=== PATIENT | male | born 1985 | race Caucasian/White ===

== ENCOUNTER 2021-01-23 14:08 | Outpatient (RCR) | payer OTHER, SELFPAY | END 2021-03-18 23:59 | LOC: IMMUN 14:08 | PROVIDERS: Visit Provider Family Medicine | DX: Z23 Encounter for immunization (principal) | CPT/HCPCS: 0001A; 0002A; 91300 ==

== ENCOUNTER → 2022-06-09 | Outpatient (CLI) | payer OTHER, SELFPAY ==
--- NOTE | 2022-06-09 16:00 | MRI_ITS ---
STUDY: MRI TEMPOROMANDIBULAR JOINTS REASON FOR EXAM: Male, 36 years old. BILAT TMJ DISORDER TECHNIQUE: Standardized fat and water weighted pulse sequences were obtained in all 3 orthogonal planes. COMPARISON: None. FINDINGS: Left TMJ: In the closed-mouth position, the left mandibular condyle is normally positioned in the mandibular fossa. Normal left mandibular condyle. Normal meniscus. Normal relationship of the meniscus to the mandibular condyle. There is no demonstrated joint effusion. In the open mouth position, there is normal forward translation of the mandibular condyle which comes to rest under the articular eminence. The meniscus maintains its normal relationship with the mandibular condyle and articular eminence. Right TMJ: In the closed-mouth position, the right mandibular condyle is normally positioned in the mandibular fossa. Amanda right mandibular condyle. Normal meniscus. Normal relationship of the meniscus to the mandibular condyle. There is no demonstrated joint effusion. In the open mouth position, there is normal forward translation of the mandibular condyle which comes to rest under the articular eminence. The meniscus maintains its normal relationship with the mandibular condyle and articular eminence. MRI/TMJ/Bilat IMPRESSION: Normal bilateral temporomandibular joints. Electronically Signed: Kenyetta Edyd MD at 8:03 EDT ,
== END | disposition home or self-care (01) ==
PROVIDERS: Referring Provider Dentist Oral and Maxillofacial Surgery; Visit Provider Dentist Oral and Maxillofacial Surgery
DX: M26.603 Bilateral temporomandibular joint disorder, unspecified (principal)
CPT/HCPCS: 70336

== ENCOUNTER → 2023-08-30 | Outpatient (CLI) | payer OTHER, SELFPAY ==
[2023-08-30 10:34] LABS: Absolute Lymphocyte Count 2.95 X10^3/uL (0.83-4.51); Absolute Neutrophil Count 3.8 X10^3/uL (2.0-7.7); Basophil# 0.06 X10^3/uL; Basophil% 0.8 % (0-1); Eosinophil# 0.09 X10^3/uL; Eosinophils% 1.2 % (0-5); Hematocrit 46.8 % (40-54); Hemoglobin 15.2 g/dL (13.0-16.5); Lymphocyte # 2.95 X10^3/ul (0.83-4.51); Lymphocyte % 39.3 % (19-41); Mean Corp Hgb Conc 32.5 g/dL (32-36); Mean Corpuscular Hgb 27.9 pg (27.0-32.0); NRBC Flagged by Analyzer 0 % (0-5); Neutrophil # 3.75 X10^3/uL (2.7-7.7); Platelet Count 249 K/mm3 (150-450); RBC Distribution Width CV 13.2 % (11.6-14.6); RBC Distribution Width SD 40.9 fl (35.1-43.9); Red Blood Count 5.44 M/mm3 (4.6-6.2); White Blood Count 7.5 K/mm3 (4.4-11.0)
[2023-08-30 10:52] LABS: Vitamin B12 550 pg/mL (211-911); Vitamin D,25 Hydroxy 30.7 ng/mL
[2023-08-30 11:15] LABS: ALB/GLOB Ratio 1.1 RATIO (0.9-2.4); AST(SGOT) 24 U/L (15-37); Alanine Aminotransfer ALT/SGPT 41 U/L (16-61); Albumin, Serum 3.9 g/dL (3.2-5.0); Alkaline Phosphatase 105 U/L (45-117); Anion Gap 5 (5-15); BUN 17 mg/dL (7-18); BUN/Creat Ratio 14.3 RATIO (10-20); Calcium,Total 8.8 mg/dL (8.5-10.1); Chloride 106 mmol/L (98-107); Cholesterol 229 mg/dL (200); Creatinine, Serum 1.19 mg/dL (0.70-1.30); EST Glomerular Filtration Rate 74 mL/min (>60); Est Glom Filt Rate - Afr Amer 89 mL/min (>60); Ferritin 292 ng/mL (26-388); Globulin 3.5 g/dL (2.2-4.2); Glucose 100 mg/dL (74-106); High Density Lipoprotein 39 mg/dL; Magnesium 2.4 mg/dL (1.6-2.6); Protein, Total 7.4 g/dL (6.4-8.2); Sodium Level 139 mmol/L (136-145); Thyroid Stim Hormone (TSH) 2.29 uIU/mL (0.358-3.74); Triglycerides 221 mg/dL; Very Low Density Lipoprotein 44 mg/dL (5-40)
== END | disposition home or self-care (01) ==
LOC: MFPLAB 08:17
PROVIDERS: PCP Family Medicine; Visit Provider Family Medicine
DX: R53.83 Other fatigue (principal)
CPT/HCPCS: 36415; 80053; 80061; 82306; 82607; 82728; 83036; 83735; 84443; 85025

== ENCOUNTER → 2025-07-06 | Outpatient (CLI) | payer OTHER, SELFPAY ==
--- OUTSIDE RECORDS SUMMARY | 2025-07-06 12:07 | XMS RPT_ITS | CCD ---
Author Organization [facility] Inform ion Partnership [facility] Care Team Providers Care Residential Subcontractor Name Role Phone Unavailable Primary Care Provider Chani Madrid Attending Unavailable Chani Willis Primary Care Unavailable Unavailable Primary Care Provider Margi Ruth MD Primary Care Provider MARGI BAE Primary Care Unavailable ROMAN HAGEN Referring Unavailable MARGI BAE Primary Care Unavailable ROMAN HAGEN Attending Unavailable GERALD JULES Referring Unavailable Medications Current Medications Medication Drug Class(es) Dates Sig (Normalized) Sig (Original) acetaminophen 325 mg / oxyCODONE hydrochloride 5 mg oral tablet (2 sources) Opioid Agonist Start: 7 take 1 tablet by mouth every six hours as needed Oxycodone-Acetaminoph en Active 1 TABLET PO EVERY 6 HOURS NEEDED January 05, 2017 11:00pm 24 hr amphetamine aspartate 7.5 mg / amphetamine sulfate 7.5 mg / dextroamphetamine saccharate 7.5 mg / dextroamphetamine sulfate 7.5 mg extended release oral capsule (2 sources) Central Nervous System Stimulant Start: 5 amphetamine-dextroamp hetamine XR (ADDERALL XR) 30 mg capsule 03/20/2025 Active AUVELITY 45-105 mg tablet (2 sources) Start: 5 AUVELITY 45-105 mg tablet 05/19/2025 Active methylPREDNISolone 4 mg oral tablet (2 sources) Corticosteroid Start: 2 take 1 tablet by mouth once Methylprednisolone (Medrol (Aashish)) 4 mg tablets,dose pack Active 0 PO per package directions May 17, 2022 11:00pm PO PER PKG DIR traZODone hydrochloride 100 mg oral tablet (2 sources) Serotonin Reuptake Inhibitor Start: traZODone (DESYREL) 100 mg tablet 05/19/2025 Active Problems Active Problems Problem Classification Problem Date Documented Da te Episodic/Chronic Malaise and fatigue (1 source) Other fatigue; Translations: [Other fatigue] Onset: 09-16-2023 Episodic Other connective tissue disease (1 source) Tendonitis of right wrist; Translations: [Other enthesopathies, not elsewhere classified] 05-24-2025 Episodic Other connective tissue disease (1 source) Other enthesopathies, not elsewhere classified; Translations: [Tendonitis of wrist, right] Onset: 05-24-2025 Episodic Other non-traumatic joint disorders (4 sources) Pain of right wrist; Translations: [Pain in right wrist] 05-24-2025 Episodic Other non-traumatic joint disorders (1 source) Pain in right wrist; Translations: [Wrist pain, right] Onset: 05-24-2025 Episodic Unclassified (1 source) Sexually Transmitted Infections Onset: 09-15-2024 Past or Other Problems Problem Classification Problem Date Documented Da te Episodic/Chronic Immunizations and screening for infectious disease (4 sources) Patient encounter status; Translations: [Encounter for screening for COVID-19] Onset: 09-15-2024 07-22-2021 Episodic Other connective tissue disease (3 sources) Increased muscle tone; Translations: [Other specified disorders of muscle] Onset: 05-23-2021 Resolved: 07-11-2021 07-11-2021 Episodic Other male genital disorders (4 sources) Pain of left testicle; Translations: [Left testicular pain] Onset: 05-23-2021 05-23-2021 Episodic Results Test Name Value Interpretation Reference Range Facil marlene Bullard 05-24-2025 CNOV Office Visit ([facility]) ---- TONIA WOODRUFF ([id number]) 1985 M Date Time Provider Department 05/24/25 4:00 PM ROMAN HAGEN During your visit today, we recorded the following information about you: Temperature Pulse Respiration Blood pressure 99.1 degrees 90/minute 18/minute 130/86 Weight 106.8 kg Roman Hagen MD 05/24/2025 5:13 PM Signed [facility] Subjective Tonia Woodruff is a 39 year old male. Patient presents with: Wrist Pain: R wrist pain x6 weeks, denies injury, overuse while gardening Right wrist pain: Duration: Started 6 weeks ago after a long weekend of yard work. No specific injury. Location: Dorsal right wrist Character: sharp and throbbing. Swelling, pain, and pain with movement have improved somewhat since they started. Radiation: Shoots up the arm with certain activity. Aggravating: Tender to touch a lump on the back of the hand, very painful trying to lift, hurts to grasp and shake hands Relieving: Pain relievers: Advil Associated: Initial wrist swelling has decrease, painful range of motion has improved (still hurts to flex and extend), palpable lump on the back of the hand at the wrist Pertinent negatives: Denies numbness Review of Systems Objective BP 130/86 Pulse 90 Temp 37.3 ?C (99.1 ?F) Resp 18 Wt 106.8 kg (235 lb 7.2 oz) SpO2 98% BMI 33.78 kg/m? Physical Exam Constitutional: General: He is not in acute distress. Musculoskeletal: Right wrist: Bony tenderness (Tender at the insertion of the extensor carpi radialis tendons. Other hand and wrist bones are nontender to palpation.) present. No swelling, deformity or snuff box tenderness. Decreased range of motion (Discomfort with near full flexion and extension. No pain with radial or ulnar deviation or supination/pronatio n. Pain with grasping.). Normal pulse. Hands: Neurological: Mental Status: He is alert. {ASSESSMENT/PLAN: 1. Wrist pain, right - ICD9: 719.43, ICD10: M25.531 (primary diagnosis) 2. Tendonitis of wrist, right - ICD9: 727.05, ICD10: M77.8 - XR WRIST GENERAL 3V PA/LAT/OBL RIGHT - negative/normal Treat extensor carpi radialis insertion tendinitis with rest, ice, and anti-inflammatory/a nalgesic. He will continue Advil. Fitted with cock up splint from vendor stock. Follow-up with orthopedics if not improving. Roman Hagen MD Differential Diagnoses - Tendinitis is more likely for the following reason(s): suggested by HANDP - Fracture is less likely for the following reason(s): no evidence on imaging Additional Tests or Interventions The following medication(s) were considered but not ordered: Discussed continuing NSAID versus oral steroid Procedures Allergies As of Date: 05/24/2025 (No Known Allergies) Date Reviewed: 05/24/2025 Reviewed by: Sole Zee MA - Fully Assessed Reason for Visit: Wrist Pain [1580] Cmt: R wrist pain x6 weeks, denies injury, overuse while gardening Primary Visit Diagnosis:Wrist pain, right [M25.531] Other Visit Diagnosis:Tendoniti s of wrist, right [M77.8] Order(s):XR WRIST GENERAL 3V PA/LAT/OBL RIGHT [[id number]] Order #: [id number] FUTURE Prescriptions as of 05/24/2025 - amphetamine-dextroa mphetamine XR (ADDERALL XR) 30 mg capsule - AUVELITY 45-105 mg tablet - traZODone (DESYREL) 100 mg tablet Problem List As Of Date 05/24/2025 Noted Resolved Pain in left testicle [N50.812] 05/23/2021 Muscle tightness [M62.89] 05/23/2021 07/11/2021 Level of Service: OFFICE/OUTPATIENT ESTABLISHED [facility] 30 MIN [14901] Encounter Status:Closed by ROMAN HAGEN on 05/24/25 [facility] XR WRIST 3V PA/LAT/OBL RTon 05-24-2025 XR WRIST 3V PA/LAT/OBL RT * * *Final Report* * * DATE OF EXAM: May 24 2025 4:17PM WOX 5271 - XR WRIST 3V PA/LAT/OBL RT / PROCEDURE REASON: Wrist pain, right * * * * Physician Interpretation * * * * EXAM TITLE: XR WRIST 3V PA/LAT/OBL RT EXAM DATE/TIME: 05/24/2025 4:17 PM COMPARISON: None. CLINICAL INDICATION/HISTORY: Wrist pain. TECHNIQUE: PA, lateral and oblique views of right wrist are presented. FINDINGS: No fractures or subluxations are noted. No bony erosions are seen. The joint spaces are well preserved. The mineralization of the bones is normal. There is no significant soft tissue swelling. IMPRESSION: Unremarkable right wrist x-ray. Vineyard Tender: [employer]OC[employer] Transcribe Date/Time: May 24 2025 4:16P Dictated by : SUSAN JOY MD This examination was interpreted and the report reviewed and electronically signed by: SUSAN JOY MD on May 24 2025 4:17PM EST [id number] Normal [facility] XR Wrist - right PA and Late ral and Obliqueon 05-24-2025 Radiology Study observation (narrative) Dahlia Morgan IMPRESSION: Unremarkable right wrist x-ray. Vineyard Tender: [facility] Transcribe Date/Time: May 24 2025 4:16P Dictated by : SUSAN JOY MD This examination was interpreted and the report reviewed and electronically signed by: SUSAN JOY MD on May 24 2025 4:17PM EST DIVISION OF RADIOLOGY * * *Final Report* * * DATE OF EXAM: May 24 2025 4:17PM WOX 5271 - XR WRIST 3V PA/LAT/OBL RT / PROCEDURE REASON: Wrist pain, right * * * * Physician Interpretation * * * * EXAM TITLE: XR WRIST 3V PA/LAT/OBL RT EXAM DATE/TIME: 05/24/2025 4:17 PM COMPARISON: None. CLINICAL INDICATION/HISTORY: Wrist pain. TECHNIQUE: PA, lateral and oblique views of right wrist are presented. FINDINGS: No fractures or subluxations are noted. No bony erosions are seen. The joint spaces are well preserved. The mineralization of the bones is normal. There is no significant soft tissue swelling. DIVISION OF RADIOLOGY Provider, [facility] [place] - 05/24/2025 * * *Final Report* * * DATE OF EXAM: May 24 2025 4:17PM WOX 5271 - XR WRIST 3V PA/LAT/OBL RT / PROCEDURE REASON: Wrist pain, right * * * * Physician Interpretation * * * * EXAM TITLE: XR WRIST 3V PA/LAT/OBL RT EXAM DATE/TIME: 05/24/2025 4:17 PM COMPARISON: None. CLINICAL INDICATION/HISTORY: Wrist pain. TECHNIQUE: PA, lateral and oblique views of right wrist are presented. FINDINGS: No fractures or subluxations are noted. No bony erosions are seen. The joint spaces are well preserved. The mineralization of the bones is normal. There is no significant soft tissue swelling. IMPRESSION IMPRESSION: Unremarkable right wrist x-ray. Vineyard Tender: [facility] Transcribe Date/Time: May 24 2025 4:16P Dictated by : SUSAN JOY MD This examination was interpreted and the report reviewed and electronically signed by: SUSAN JOY MD on May 24 2025 4:17PM EST [facility] XR Wrist - right PA and Late ral and ObliqueOrdered By: Ccf Provider on 05-24-2025 [facility] C. trachomatis+N. gonorrhoea e DNA DEXTER+probe Ql (Unsp spec)on 09-15-2024 C. trachomatis rRNA DEXTER+probe Ql (Unsp spec) Not detected Normal Not detected [facility] Comment on above: Order Comment: Speci men Type: URINE SPECIMEN Ordering Facility: [facility] Address: [address] [place] [address] Performed By: #### 3 6902-5 #### [facility] CLIA [id number] [address] [place] [address] [place] N. gonorrhoeae rRNA DEXTER+probe Ql (Unsp spec) Not detected Normal Not detected [facility] Comment on above: Order Comment: Speci men Type: URINE SPECIMEN Ordering Facility: [facility] Address: [address] [place] [address] Performed By: #### 3 6902-5 #### [facility] CLIA [id number] [address] [place] [address] [place] CNOVon 09-15-2024 CNOV Office Visit ([facility]) ---- TONIA WOODRUFF ([id number]) 1985 M Date Time Provider Department 09/15/24 3:00 PM GERALD JULES [facility] During your visit today, we recorded the following information about you: Temperature Pulse Respiration Blood pressure 99.2 degrees 86/minute 18/minute 142/84 Weight 108 kg Gerald Jules APRN.CNP 09/15/2024 3:14 PM Signed This note was created using [employer]. Subjective Tonia Woodruff is a 38 year old male. HPI Patient is concerned for possible STD exposure and presents requesting testing. Patient otherwise denies any nausea vomiting fever, lesions, penile drainage, or abdominal pain. Review of Systems As noted above Objective BP 142/84 Pulse 86 Temp 37.3 ?C (99.2 ?F) Resp 18 Wt 108 kg (238 lb 1.6 oz) SpO2 95% BMI 34.16 kg/m? Physical Exam Vitals and nursing note reviewed. Constitutional: General: He is not in acute distress. Appearance: Normal appearance. He is not ill-appearing. HENT: Head: Normocephalic. Pulmonary: Effort: Pulmonary effort is normal. Musculoskeletal: General: Normal range of motion. Cervical back: Normal range of motion. Skin: General: Skin is warm and dry. Neurological: General: No focal deficit present. Mental Status: He is alert. Psychiatric: Mood and Affect: Mood normal. Behavior: Behavior normal. Assessment and Plan ASSESSMENT/PLAN: 1. STD exposure - ICD9: V01.6, ICD10: Z20.2 Testing done as noted below. Patient will be notified of results. - SYPHILIS TREPONEMAL W/REFLEX - HIV 1/2 COMBO WITH REFLEX TO DIFFERENTIATION - HEPATITIS C ANTIBODY IA WITH CONFIRMATION - HEPATITIS B SURFACE ANTIGEN - GONORRHEA/CHLAMYDIA NAAT - HERPES SIMPLEX TYPE 1 AND 2 IG Gerald Jules APRN.CNP Allergies As of Date: 09/15/2024 (No Known Allergies) Date Reviewed: 09/15/2024 Reviewed by: Sole Zee MA - Fully Assessed Reason for Visit: Herpes [934] Cmt: Requesting bloodwork, denies symptoms or active infection Primary Visit Diagnosis:STD exposure [Z20.2] Order(s):SYPHILIS TREPONEMAL W/REFLEX [SQSYPHTX] Order #: [id number] FUTURE HIV 1/2 COMBO WITH REFLEX TO DIFFERENTIATION [SQHIV12] Order #: [id number] FUTURE HEPATITIS C ANTIBODY IA WITH CONFIRMATION [EFVOEX8X] Order #: [id number] FUTURE HEPATITIS B SURFACE ANTIGEN [SQHBSAG] Order #: [id number] FUTURE GONORRHEA/CHLAMYDIA NAAT [SQGCCT] Order #: [id number] FUTURE HERPES SIMPLEX TYPE 1 AND 2 IG [XCTQBN56] Order #: [id number] FUTURE GONORRHEA/CHLAMYDIA NAAT [SQGCCT] Order #: [id number]. #:[id number] Problem List As Of Date 09/15/2024 Noted Resolved Pain in left testicle [N50.812] 05/23/2021 Muscle tightness [M62.89] 05/23/2021 07/11/2021 Encounter Status:Closed by GERALD JULES on 09/15/24 Normal [facility] HBV surface Ag Ser Qlon HBV surface Ag Ql (S) Negative Normal Negative [facility] Comment on above: Order Comment: Speci men Type: BLOOD SPECIMEN Ordering Facility: [facility] Address: [address] [place] [address] Performed By: #### 3 1201-7, 32139-6, 5195-3 #### [facility] CLIA [id number] [address] [place] [address] [place] HCV Ab Ser Qlon 09-15-2024 HCV Ab Ql (S) Negative Normal Negative [facility] Comment on above: Order Comment: Speci men Type: BLOOD SPECIMEN Ordering Facility: [facility] Address: [address] [place] [address] Result Comment: The result suggests no evidence of active infection with Hepatitis C virus. Should recent infection be suspected, repeat testing may be considered 4-6 weeks after this draw. Performed By: #### 1 6128-1 #### [facility] CLIA [id number] [address] [place] [address] OF [place] HERPES SIMPLEX TYPE 1 AND 2 IGon 09-15-2024 HSV IGG 1 QUALITATIVE Negative Normal Negative [facility] Comment on above: Order Comment: Speci men Type: BLOOD SPECIMEN Ordering Facility: [facility] Address: [address] [place] [address] Result Comment: No e vidence of past history of HSV-1 infection. Negative result cannot exclude HSV-1 infection if the specimen collected 3-4 weeks after a primary episode of HSV-1 infection. Early institution of antiviral agents may delay or abrogate specific humoral response. Performed By: #### H SVG12 #### [facility] CLIA [id number] [address] [place] [address] [place] HSV IGG 2 QUALITATIVE Negative Normal Negative [facility] Comment on above: Order Comment: Speci men Type: BLOOD SPECIMEN Ordering Facility: [facility] Address: [address] [place] [address] Result Comment: No e vidence of past history of HSV-2 infection. Negative result cannot exclude HSV-2 infection if the specimen collected 4-6 weeks after a primary episode of HSV-2 infection. Early institution of antiviral agents may delay or abrogate specific humoral response. Performed By: #### H SVG12 #### [facility] CLIA [id number] [address] [place] [address] [place] HIV 1+2 Ab IA Qlon HIV 1 and 2 Ab IA.rapid Nom (S/P/Bld) Normal [facility] Comment on above: Order Comment: Speci men Type: BLOOD SPECIMEN Ordering Facility: [facility] Address: [address] [place] [address] Result Comment: Test not indicated. Performed By: #### 3 1201-7, 94237-3, 5195-3 #### [facility] CLIA [id number] [address] [place] [address] [place] HIV 1+2 Ab+HIV1 p24 Ag IA Ql Non-Reactive Normal Nonreactive [facility] Comment on above: Order Comment: Speci men Type: BLOOD SPECIMEN Ordering Facility: [facility] Address: [address] [place] [address] Performed By: #### 3 1201-7, 67171-7, 5195-3 #### [facility] CLIA [id number] [address] [place] [address] [place] HIV immunoassay testing algorithm interpretation (S/P/Bld) [Interp] Normal [facility] Comment on above: Order Comment: Speci men Type: BLOOD SPECIMEN Ordering Facility: [facility] Address: [address] [place] [address] Result Comment: No e vidence of HIV-1 or HIV-2 infection. Should recent infection be suspected, repeat testing may be considered 2-3 weeks after this draw. [place] Rev. Code 3701.243(E): This information has been disclosed to you from confidential records protected from disclosure by state law. ???You shall make no further disclosure of this information without the specific, written, and informed release of the individual to whom it pertains or as otherwise permitted by state law. A general authorization for the release of medical or other information is not sufficient for the purpose of the release of HIV test results or diagnoses. Performed By: #### 3 1201-7, 75140-2, 5195-3 #### [facility] CLIA [id number] [address] [place] [address] [place] Reagin and Treponema pallidu m IgG and IgM [Interp]on 09-15-2024 T. pallidum IgG+IgM IA Ql (S) Non-Reactive Normal Nonreactive [facility] Comment on above: Order Comment: Speci men Type: BLOOD SPECIMEN Ordering Facility: [facility] Address: [address] [place] [address] Performed By: #### 3 1201-7, 64697-2, 5195-3 #### [facility] CLIA [id number] [address] [place] [address] [place] Reagin+T pallidum IgG+IgM Se rPl-Impon 09-15-2024 Reagin and Treponema pallidum IgG and IgM [Interp] Cannot exclude recent Treponemal infection if specimen collected within 7-10 days after appearance of suspect lesions or 2-3 weeks after an exposure. Clinical correlation is required. Normal [facility] Comment on above: Order Comment: Speci men Type: BLOOD SPECIMEN Ordering Facility: [facility] Address: [address] [place] [address] Performed By: #### 3 1201-7, 40197-2, 5195-3 #### [facility] CLIA [id number] [address] [place] [address] [place] [address] [place] Absolute lymphocyte countOrd ered By: Chani Willis on 08-30-2023 Lymphocytes Auto (Unsp spec) [#/Vol] 2.95 10*3/uL 0.83-4.51 [facility] Basophil percentageOrdered B y: Chani Willis on 08-30-2023 Basophils/100 WBC (Bld) 0.8 % 0-1 [facility] Bilirubin [Mass/Vol] 0.50 mg/dL 0.20-1.00 [facility] Comment on above: For patients on eltr ombopag therapy, use of Dimension [place] TBIL is not recommended. Chloride [Moles/Vol] 106 mmol/L 98-107 [facility] Cholesterol [Mass/Vol] 229 mg/dL <[address] [facility] Comment on above: <200 mg/dL Desirable 200-240 mg/dL Borderline >240 mg/dL High Risk Eosinophils/100 WBC (Bld) 1.2 % 0-5 [facility] Glucose [Mass/Vol] 100 mg/dL 74-106 [facility] Comment on above: Fasting Glucose resu lt from 100 to 125 mg/dL suggests IMPAIRED HOMEOSTASIS per A.D.A. criteria. Neutrophils (Bld) [#/Vol] 3.8 10*3/uL 2.0-7.7 [facility] Neutrophils/100 WBC (Bld) 50.0 % 47-70 [facility] Potassium [Moles/Vol] 4.0 mmol/L 3.5-5.1 [facility] Protein [Mass/Vol] 7.4 g/dL 6.4-8.2 [facility] Sodium [Moles/Vol] 139 mmol/L 136-145 [facility] Triglyceride [Mass/Vol] 221 mg/dL <199 [facility] Comment on above: The drugs N-Acetylcy steine and Metamizole may falsely depress this assay.Serum Triglycerides Reference Interval Normal <150 mg/dL Borderline high 150 - 199 mg/dL High 200 - 499 mg/dL Very High > or = 500 mg/dL WBC (Bld) [#/Vol] 7.5 10*3/uL 4.4-11.0 [facility] Blood erythrocytes count (nu mber/volume)Ordered By: Chani Willis on 08-30-2023 RBC (Bld) [#/Vol] 5.44 10*6/uL 4.6-6.2 [facility] Blood hemoglobin measurement (mass/volume)Ordered By: Chani Willis on 08-30-2023 Hemoglobin (Bld) [Mass/Vol] 15.2 g/dL 13.0-16.5 [facility] Blood lymphocytes/100 leukoc ytesOrdered By: Chani Willis on 08-30-2023 Lymphocytes/100 WBC (Bld) 39.3 % 19-41 [facility] Blood monocytes/100 leukocyt esOrdered By: Chani Willis on 08-30-2023 Monocytes/100 WBC (Bld) 8.0 % 0-10 [facility] Blood platelet mean volumeOr dered By: Chani Willis on 08-30-2023 Platelet mean volume (Bld) [Entitic vol] 11.0 fL 6.2-12.0 [facility] CBC W/Diff, Automatedon 08-12 Absolute Lymph 2.95 X10 3/uL Normal 0.83-4.51 [facility] Comment on above: Order Comment: Order Date: 08/25/23 Order Info: 0184-1 - CBCD Performed By: #### L 501.9520, L503.0105, L501.5200, L500.4050, L501.9985, L500.4100, L506.1000, L100.0100, L503.6550 #### [facility] [address] [place], [address] Absolute Neut 3.8 X10 3/uL Normal 2.0-7.7 [facility] Comment on above: Order Comment: Order Date: 08/25/23 Order Info: 0184-1 - CBCD Performed By: #### L 501.9520, L503.0105, L501.5200, L500.4050, L501.9985, L500.4100, L506.1000, L100.0100, L503.6550 #### [facility] [address] [place], [address] Basophils/100 WBC (Bld) 0.8 % Normal 0-1 [facility] Comment on above: Order Comment: Order Date: 08/25/23 Order Info: 0184-1 - CBCD Performed By: #### L 501.9520, L503.0105, L501.5200, L500.4050, L501.9985, L500.4100, L506.1000, L100.0100, L503.6550 #### [facility] [address] [place], [address] Eosinophils/100 WBC (Bld) 1.2 % Normal 0-5 [facility] Comment on above: Order Comment: Order Date: 08/25/23 Order Info: 0184-1 - CBCD Performed By: #### L 501.9520, L503.0105, L501.5200, L500.4050, L501.9985, L500.4100, L506.1000, L100.0100, L503.6550 #### [facility] [address] [place], [address] Erythrocyte distribution width (RBC) [Ratio] 13.2 % Normal 11.6-14.6 [facility] Comment on above: Order Comment: Order Date: 08/25/23 Order Info: 0184-1 - CBCD Performed By: #### L 501.9520, L503.0105, L501.5200, L500.4050, L501.9985, L500.4100, L506.1000, L100.0100, L503.6550 #### [facility] [address] [facility] [place], [address] Hematocrit (Bld) [Volume fraction] 46.8 % Normal 40-54 [facility] Comment on above: Order Comment: Order Date: 08/25/23 Order Info: 0184-1 - CBCD Performed By: #### L 501.9520, L503.0105, L501.5200, L500.4050, L501.9985, L500.4100, L506.1000, L100.0100, L503.6550 #### [facility] [address] [facility] [place], [address] Hemoglobin (Bld) [Mass/Vol] 15.2 g/dL Normal 13.0-16.5 [facility] Comment on above: Order Comment: Order Date: 08/25/23 Order Info: 0184-1 - CBCD Performed By: #### L [id number], L503.0105, L501.5200, L500.4050, L501.9985, L500.4100, L506.1000, L100.0100, L503.6550 #### [facility] [address] [place], [address] IG% 0.700 Normal 0.0-0.9 [facility] Comment on above: Order Comment: Order Date: 08/25/23 Order Info: 0184-1 - CBCD Result Comment: IG% - Immature Granulocytes (promyelocytes, myelocytes and metamyelocytes) > 1% indicates that a LEFT SHIFT is Present. Performed By: #### L 501.9520, L503.0105, L501.5200, L500.4050, L501.9985, L500.4100, L506.1000, L100.0100, L503.6550 #### [facility] [address] [place], [address] Lymphocytes/100 WBC (Bld) 39.3 % Normal 19-41 [facility] Comment on above: Order Comment: Order Date: 08/25/23 Order Info: 0184-1 - CBCD Performed By: #### L 501.9520, L503.0105, L501.5200, L500.4050, L501.9985, L500.4100, L506.1000, L100.0100, L503.6550 #### [facility] [address] [place], [address] MCH (RBC) [Entitic mass] 27.9 pg Normal 27.0-32.0 [facility] Comment on above: Order Comment: Order Date: 08/25/23 Order Info: 0184- - CBCD Performed By: #### L 501.9520, L503.0105, L501.5200, L500.4050, L501.9985, L500.4100, L506.1000, L100.0100, L503.6550 #### [facility] [address] [place], [address] MCHC (RBC) [Mass/Vol] 32.5 g/dL Normal 32-36 [facility] Comment on above: Order Comment: Order Date: 08/25/23 Order Info: 0184- - CBCD Performed By: #### L 501.9520, L503.0105, L501.5200, L500.4050, L501.9985, L500.4100, L506.1000, L100.0100, L503.6550 #### [facility] [address] [place], [address] MCV (RBC) [Entitic vol] 86.0 fL Normal 80-94 [facility] Comment on above: Order Comment: Order Date: 08/25/23 Order Info: 0184- - CBCD Performed By: #### L 501.9520, L503.0105, L501.5200, L500.4050, L501.9985, L500.4100, L506.1000, L100.0100, L503.6550 #### [facility] [address] [place], [address] Monocytes/100 WBC (Bld) 8.0 % Normal 0-10 [facility] Comment on above: Order Comment: Order Date: 08/25/23 Order Info: 0184-1 - CBCD Performed By: #### L 501.9520, L503.0105, L501.5200, L500.4050, L501.9985, L500.4100, L506.1000, L100.0100, L503.6550 #### [facility] [address] [place], [address] Neutrophils/100 WBC (Bld) 50.0 % Normal 47-70 [facility] Comment on above: Order Comment: Order Date: 08/25/23 Order Info: 0184-1 - CBCD Performed By: #### L 501.9520, L503.0105, L501.5200, L500.4050, L501.9985, L500.4100, L506.1000, L100.0100, L503.6550 #### [facility] [address] [place], [address] Nucleated RBC (Bld) [#/Vol] 0 10*3/uL Normal 0-5 [facility] Comment on above: Order Comment: Order Date: 08/25/23 Order Info: 0184-1 - CBCD Performed By: #### L 501.9520, L503.0105, L501.5200, L500.4050, L501.9985, L500.4100, L506.1000, L100.0100, L503.6550 #### [facility] [address] [place], [address] Platelet mean volume (Bld) [Entitic vol] 11.0 fL Normal 6.2-12.0 [facility] Comment on above: Order Comment: Order Date: 08/25/23 Order Info: 0184-1 - CBCD Performed By: #### L 501.9520, L503.0105, L501.5200, L500.4050, L501.9985, L500.4100, L506.1000, L100.0100, L503.6550 #### [facility] [address] [place], [address] Platelets (Bld) [#/Vol] 249 10*3/uL Normal 150-450 [facility] Comment on above: Order Comment: Order Date: 08/25/23 Order Info: 0184-1 - CBCD Performed By: #### L 501.9520, L503.0105, L501.5200, L500.4050, L501.9985, L500.4100, L506.1000, L100.0100, L503.6550 #### [facility] [address] [place], [address] RBC (Bld) [#/Vol] 5.44 10*6/uL Normal 4.6-6.2 [facility] Comment on above: Order Comment: Order Date: 08/25/23 Order Info: 0184-1 - CBCD Performed By: #### L 501.9520, L503.0105, L501.5200, L500.4050, L501.9985, L500.4100, L506.1000, L100.0100, L503.6550 #### [facility] [address] [place], [address] RDW SD 40.9 fl Normal 35.1-43.9 [facility] Comment on above: Order Comment: Order Date: 08/25/23 Order Info: 0184-1 - CBCD Performed By: #### L 501.9520, L503.0105, L501.5200, L500.4050, L501.9985, L500.4100, L506.1000, L100.0100, L503.6550 #### [facility] [address] [place], [place], [id number] WBC (Bld) [#/Vol] 7.5 10*3/uL Normal 4.4-11.0 [facility] Comment on above: Order Comment: Order Date: 08/25/23 Order Info: 0184-1 - CBCD Performed By: #### L 501.9520, L503.0105, L501.5200, L500.4050, L501.9985, L500.4100, L506.1000, L100.0100, L503.6550 #### [facility] [address] [place], [place], [id number] Comprehensive Metabolic Prof ilon 08-30-2023 Albumin [Mass/Vol] 3.9 g/dL Normal 3.2-5.0 [facility] Comment on above: Order Comment: Order Date: 08/25/23 Order Info: 0786-1 - CMP Order Info: [id number] - LIPID Order Info: [id number] - MG Order Info: 3015-3 - TSH Order Info: 4 - IDA Performed By: #### L 501.9520, L503.0105, L501.5200, L500.4050, L501.9985, L500.4100, L506.1000, L100.0100, L503.6550 #### [facility] [address] [place], [place], [phone] Albumin/Globulin [Mass ratio] 1.1 {ratio} Normal 0.9-2.4 [facility] Comment on above: Order Comment: Order Date: 08/25/23 Order Info: 0786-1 - CMP Order Info: [id number] - LIPID Order Info: [id number] - MG Order Info: 3016-3 - TSH Order Info: 2276-4 - IDA Performed By: #### L 501.9520, L503.0105, L501.5200, L500.4050, L501.9985, L500.4100, L506.1000, L100.0100, L503.6550 #### [facility] [address] [place], [address] ALK P 105 U/L Normal 45-117 [facility] Comment on above: Order Comment: Order Date: 08/25/23 Order Info: 86-1 - CMP Order Info: [id number] - LIPID Order Info: [id number] - MG Order Info: 3 - TSH Order Info: 2275-4 - IDA Performed By: #### L 501.9520, L503.0105, L501.5200, L500.4050, L501.9985, L500.4100, L506.1000, L100.0100, L503.6550 #### [facility] [address] [place], [place], [phone] [Catalytic activity/Vol] 41 U/L Normal 16-61 [facility] Comment on above: Order Comment: Order Date: 08/25/23 Order Info: 785-1 - CMP Order Info: [id number] - LIPID Order Info: [id number] - MG Order Info: 3 - TSH Order Info: 2275-4 - IDA Performed By: #### L 501.9520, L503.0105, L501.5200, L500.4050, L501.9985, L500.4100, L506.1000, L100.0100, L503.6550 #### [facility] [address] [place], [place], [address] [phone]) AST [Catalytic activity/Vol] 24 U/L Normal 15-37 [facility] Comment on above: Order Comment: Order Date: 08/25/23 Order Info: 86-1 - CMP Order Info: [id number] - LIPID Order Info: [id number] - MG Order Info: 3015-3 - TSH Order Info: 2275-4 - IDA Performed By: #### L 501.9520, L503.0105, L501.5200, L500.4050, L501.9985, L500.4100, L506.1000, L100.0100, L503.6550 #### [facility] [address] [place], [place], [phone] (764) Bilirubin [Mass/Vol] 0.50 mg/dL Normal 0.20-1.00 [facility] Comment on above: Order Comment: Order Date: 08/25/23 Order Info: 86-1 - CMP Order Info: [id number] - LIPID Order Info: [id number] - MG Order Info: 3 - TSH Order Info: 4 - IDA Result Comment: For patients on eltrombopag therapy, use of Dimension [place] TBIL is not recommended. Performed By: #### L 501.9520, L503.0105, L501.5200, L500.4050, L501.9985, L500.4100, L506.1000, L100.0100, L503.6550 #### [facility] [address] [place], [place], [phone] (054) BUN/CRE 14.3 RATIO Normal 10-20 [facility] Comment on above: Order Comment: Order Date: 08/25/23 Order Info: 785- - CMP Order Info: [id number] - LIPID Order Info: [id number] - MG Order Info: 3 - TSH Order Info: 4 - IDA Performed By: #### L 501.9520, L503.0105, L501.5200, L500.4050, L501.9985, L500.4100, L506.1000, L100.0100, L503.6550 #### [facility] [address] [place], [address] ([phone]) CA,Total 8.8 mg/dL Normal 8.5-10.1 [facility] Comment on above: Order Comment: Order Date: 08/25/23 Order Info: 785-1 - CMP Order Info: [id number] - LIPID Order Info: [id number] - MG Order Info: 3013 - TSH Order Info: 2276-4 - IDA Performed By: #### L 501.9520, L503.0105, L501.5200, L500.4050, L501.9985, L500.4100, L506.1000, L100.0100, L503.6550 #### [facility] [address] [place], [address] Chloride [Moles/Vol] 106 mmol/L Normal 98-107 [facility] Comment on above: Order Comment: Order Date: 08/25/23 Order Info: 07-1 - CMP Order Info: [id number] - LIPID Order Info: [id number] - MG Order Info: 3 - TSH Order Info: 2276-01 - IDA Performed By: #### L 501.9520, L503.0105, L501.5200, L500.4050, L501.9985, L500.4100, L506.1000, L100.0100, L503.6550 #### [facility] [address] [place], [address] CO2 [Moles/Vol] 28.0 mmol/L Normal 21.0-32.0 [facility] Comment on above: Order Comment: Order Date: 08/25/23 Order Info: 0786-1 - CMP Order Info: [id number] - LIPID Order Info: [id number] - MG Order Info: 3 - TSH Order Info: 4 - IDA Performed By: #### L 501.9520, L503.0105, L501.5200, L500.4050, L501.9985, L500.4100, L506.1000, L100.0100, L503.6550 #### [facility] [address] [place], [address] Creatinine [Mass/Vol] 1.19 mg/dL Normal 0.70-1.30 [facility] Comment on above: Order Comment: Order Date: 08/25/23 Order Info: 0786-1 - CMP Order Info: [id number] - LIPID Order Info: [id number] - MG Order Info: 3 - TSH Order Info: 4 - IDA Result Comment: The validity of the calculated GFR GFRAA in patients over 70 years has not been determined. Clinical correlation is essential. Performed By: #### L 501.9520, L503.0105, L501.5200, L500.4050, L501.9985, L500.4100, L506.1000, L100.0100, L503.6550 #### [facility] [address] [place], [place], [phone] EST GFR - AA 89 mL/min Normal >60 [facility] Comment on above: Order Comment: Order Date: 08/25/23 Order Info: 0786-1 - CMP Order Info: [id number] - LIPID Order Info: [id number] - MG Order Info: 3 - TSH Order Info: 2276-01 - IDA Result Comment: Afri can Austrian GFR Calc Performed By: #### L 501.9520, L503.0105, L501.5200, L500.4050, L501.9985, L500.4100, L506.1000, L100.0100, L503.6550 #### [facility] [address] [place], [place], [phone] (499) GAP 5 Normal 5-15 [facility] Comment on above: Order Comment: Order Date: 08/25/23 Order Info: 0786- - CMP Order Info: [id number] - LIPID Order Info: [id number] - MG Order Info: 3 - TSH Order Info: 4 - IDA Performed By: #### L 501.9520, L503.0105, L501.5200, L500.4050, L501.9985, L500.4100, L506.1000, L100.0100, L503.6550 #### [facility] [address] [place], [place], [phone] (930) GFR/1.73 sq M.predicted among non-blacks MDRD (S/P/Bld) [Vol rate/Area] 74 mL/min/{1.73_m2} Normal >60 [facility] Comment on above: Order Comment: Order Date: 08/25/23 Order Info: 07-1 - CMP Order Info: [id number] - LIPID Order Info: [id number] - MG Order Info: 3 - TSH Order Info: 2276-01 - IDA Result Comment: Non- GFR Calc Performed By: #### L 501.9520, L503.0105, L501.5200, L500.4050, L501.9985, L500.4100, L506.1000, L100.0100, L503.6550 #### [facility] [address] [place], [place], [phone] Globulin (S) [Mass/Vol] 3.5 g/dL Normal 2.2-4.2 [facility] Comment on above: Order Comment: Order Date: 08/25/23 Order Info: 785-10 - CMP Order Info: - LIPID Order Info: [id number] - MG Order Info: 3015-12 - TSH Order Info: 2276-01 - IDA Performed By: #### L 501.9520, L503.0105, L501.5200, L500.4050, L501.9985, L500.4100, L506.1000, L100.0100, L503.6550 #### [facility] [address] [place], [place], [phone] Glucose [Mass/Vol] 100 mg/dL Normal 74-106 [facility] Comment on above: Order Comment: Order Date: 08/25/23 Order Info: 785-10 - CMP Order Info: [id number] - LIPID Order Info: [id number] - MG Order Info: 3015-12 - TSH Order Info: 2276-01 - IDA Result Comment: Fast ing Glucose result from 100 to 125 mg/dL suggests IMPAIRED HOMEOSTASIS per A.D.A. criteria. Performed By: #### L 501.9520, L503.0105, L501.5200, L500.4050, L501.9985, L500.4100, L506.1000, L100.0100, L503.6550 #### [facility] [address] [place], [address] Potassium [Moles/Vol] 4.0 mmol/L Normal 3.5-5.1 [facility] Comment on above: Order Comment: Order Date: 08/25/23 Order Info: 785-1 - CMP Order Info: [id number] - LIPID Order Info: [id number] - MG Order Info: 3015-3 - TSH Order Info: 2275-4 - IDA Performed By: #### L 501.9520, L503.0105, L501.5200, L500.4050, L501.9985, L500.4100, L506.1000, L100.0100, L503.6550 #### [facility] [address] [place], [address] Sodium [Moles/Vol] 139 mmol/L Normal 136-145 [facility] Comment on above: Order Comment: Order Date: 08/25/23 Order Info: 785-10 - CMP Order Info: [id number] - LIPID Order Info: [id number] - MG Order Info: 3015-3 - TSH Order Info: 2275-4 - IDA Performed By: #### L 501.9520, L503.0105, L501.5200, L500.4050, L501.9985, L500.4100, L506.1000, L100.0100, L503.6550 #### [facility] [address] [place], [address] T PROT 7.4 g/dL Normal 6.4-8.2 [facility] Comment on above: Order Comment: Order Date: 08/25/23 Order Info: 785-1 - CMP Order Info: [id number] - LIPID Order Info: [id number] - MG Order Info: [id number] - TSH Order Info: 227-4 - IDA Performed By: #### L 501.9520, L503.0105, L501.5200, L500.4050, L501.9985, L500.4100, L506.1000, L100.0100, L503.6550 #### [facility] [address] [place], [place], [phone] Urea nitrogen [Mass/Vol] 17 mg/dL Normal 7-18 [facility] Comment on above: Order Comment: Order Date: 08/25/23 Order Info: 0786- - CMP Order Info: - LIPID Order Info: [id number] - MG Order Info: 3015-12 - TSH Order Info: 2276-01 - IDA Performed By: #### L 501.9520, L503.0105, L501.5200, L500.4050, L501.9985, L500.4100, L506.1000, L100.0100, L503.6550 #### [facility] [address] [place], [address] Determination of erythrocyte mean corpuscular volume (MCV)Ordered By: Chani Willis on 08-30-2023 MCV (RBC) [Entitic vol] 86.0 fL 80-94 [facility] Ferritinon 08-30-2023 Ferritin [Mass/Vol] 292 ng/mL Normal 26-388 [facility] Comment on above: Order Comment: Order Date: 08/25/23 Order Info: 0786- - CMP Order Info: - LIPID Order Info: [id number] - MG Order Info: 3015-12 - TSH Order Info: 2276-01 - IDA Performed By: #### L 501.9520, L503.0105, L501.5200, L500.4050, L501.9985, L500.4100, L506.1000, L100.0100, L503.6550 #### [facility] [address] [place], [address] Hematocrit Auto (Bld) [Volum e fraction]Ordered By: Chani Willis on 08-30-2023 Hematocrit (Bld) [Volume fraction] 46.8 % 40-54 [facility] Hemoglobin A1con 08-30-2023 HbA1c (Bld) [Mass fraction] 5.0 % Normal 3.8-5.6 [facility] Comment on above: Order Comment: Order Date: 08/25/23 Order Info: [id number] - A1C Result Comment: Norm al < 5.7 % Prediabetic 5.7 - 6.4 % Diabetic >or= 6.5 % Please note range changes. Performed By: #### L 501.9520, L503.0105, L501.5200, L500.4050, L501.9985, L500.4100, L506.1000, L100.0100, L503.6550 #### [facility] [address] [place], [address] Laboratory - Chemistry and C hemistry - challengeOrdered By: Chani Willis on 08-30-2023 ALP [Catalytic activity/Vol] 105 U/L 45-117 [facility] ALT [Catalytic activity/Vol] 41 U/L 16-61 [facility] CO2 [Moles/Vol] 28.0 mmol/L 21.0-32.0 [facility] Cobalamin (Vitamin B12) [Mass/Vol] 550 pg/mL 211-911 [facility] Globulin (S) [Mass/Vol] 3.5 g/dL 2.2-4.2 [facility] Magnesium [Mass/Vol] 2.4 mg/dL 1.6-2.6 [facility] Urea nitrogen/Creatinine [Mass ratio] 14.3 mg/mg 10-20 [facility] - Hematology and Cell countsOrdered By: Chani Willis on 08-30-2023 Erythrocyte distribution width (RBC) [Entitic vol] 40.9 fL 35.1-43.9 [facility] Erythrocyte distribution width (RBC) [Ratio] 13.2 % 11.6-14.6 [facility] Immature granulocytes/100 WBC (Bld) 0.700 % 0.0-0.9 [facility] Comment on above: IG% - Immature Granu locytes (promyelocytes, myelocytes and metamyelocytes) > 1% indicates that a LEFT SHIFT is Present. MCH (RBC) [Entitic mass] 27.9 pg 27.0-32.0 [facility] Nucleated RBC/100 WBC (Bld) [Ratio] 0 % 0-5 [facility] Lipid Profileon 08-30-2023 Cholesterol [Mass/Vol] 229 mg/dL High [address] [facility] Comment on above: Order Comment: Order Date: 08/25/23 Order Info: 0786-1 - CMP Order Info: [id number] - LIPID Order Info: [id number] - MG Order Info: 3 - TSH Order Info: 4 - IDA Result Comment: <200 mg/dL Desirable 200-240 mg/dL Borderline >240 mg/dL High Risk Performed By: #### L 501.9520, L503.0105, L501.5200, L500.4050, L501.9985, L500.4100, L506.1000, L100.0100, L503.6550 #### [facility] [address] [place], [address] Cholesterol in HDL [Mass/Vol] 39 mg/dL Low [facility] Comment on above: Order Comment: Order Date: 08/25/23 Order Info: 0786- - CMP Order Info: [id number] - LIPID Order Info: [id number] - MG Order Info: 3 - TSH Order Info: [id number] - IDA Result Comment: The drugs N-Acetylcysteine and Metamizole may falsely depress this assay. Reference Range HDL <40 mg/dL Low HDL Cholesterol HDL >or= 60 mg/dL High HDL Cholesterol Performed By: #### L 501.9520, L503.0105, L501.5200, L500.4050, L501.9985, L500.4100, L506.1000, L100.0100, L503.6550 #### [facility] [address] [place], [address] Cholesterol in LDL [Mass/Vol] 146 mg/dL High 0-130 [facility] Comment on above: Order Comment: Order Date: 08/25/23 Order Info: 785-10 - CMP Order Info: - LIPID Order Info: [id number] - MG Order Info: 3015-12 - TSH Order Info: [id number] - IDA Performed By: #### L 501.9520, L503.0105, L501.5200, L500.4050, L501.9985, L500.4100, L506.1000, L100.0100, L503.6550 #### [facility] [address] [place], [place], [id number] Cholesterol in VLDL [Mass/Vol] 44 mg/dL High 5-40 [facility] Comment on above: Order Comment: Order Date: 08/25/23 Order Info: 785-10 - CMP Order Info: - LIPID Order Info: [id number] - MG Order Info: 3015-12 - TSH Order Info: [id number] - IDA Performed By: #### L 501.9520, L503.0105, L501.5200, L500.4050, L501.9985, L500.4100, L506.1000, L100.0100, L503.6550 #### [facility] [address] [place], [place], [id number] Triglyceride [Mass/Vol] 221 mg/dL High [facility] Comment on above: Order Comment: Order Date: 08/25/23 Order Info: 785-10 - CMP Order Info: - LIPID Order Info: [id number] - MG Order Info: 3015-12 - TSH Order Info: [id number] - IDA Result Comment: The drugs N-Acetylcysteine and Metamizole may falsely depress this assay. Serum Triglycerides Reference Interval Normal <150 mg/dL Borderline high 150 - 199 mg/dL High 200 - 499 mg/dL Very High > or = 500 mg/dL Performed By: #### L 501.9520, L503.0105, L501.5200, L500.4050, L501.9985, L500.4100, L506.1000, L100.0100, L503.6550 #### [facility] [address] [place], [place], [address] MCHC Auto (RBC) [Mass/Vol]Or dered By: Chani Willis on 08-30-2023 MCHC (RBC) [Mass/Vol] 32.5 g/dL 32-36 [facility] Magnesiumon 08-30-2023 Magnesium [Mass/Vol] 2.4 mg/dL Normal 1.6-2.6 [facility] Comment on above: Order Comment: Order Date: 08/25/23 Order Info: 0786-1 - CMP Order Info: [id number] - LIPID Order Info: [id number] - MG Order Info: 3016-3 - TSH Order Info: 2276-4 - IDA Performed By: #### L 501.9520, L503.0105, L501.5200, L500.4050, L501.9985, L500.4100, L506.1000, L100.0100, L503.6550 #### [facility] [address] [place], [address] No Panel InformationOrdered By: Chani Willis on 08-30-2023 Estimated GFR (MDRD) Amer 89 mL/min >60 [facility] Comment on above: GFR Calc Estimated GFR (MDRD) Non-Af Amer 74 mL/min >60 [facility] Comment on above: Non- GFR Calc Thyroid Stimulating Hormone (TSH) 2.29 uIU/mL 0.358-3.74 [facility] Vitamin D 25-Hydroxy 30.7 ng/mL [facility] Comment on above: Vitamin D 25(OH) Sta tus Range Deficiency <20 ng/mL (50nmol/L) Insufficiency 20 - 30 ng/mL (50 - 75 nmol/L) Sufficiency 30 - 100 ng/mL (75 - 250 nmol/L) Toxicity >100 ng/mL (>250 nmol/L) Platelets bldOrdered By: Aaliyah Willis on 08-30-2023 Platelets (Bld) [#/Vol] 249 10*3/uL 150-450 [facility] Serum or plasma albumin antonia urement (mass/volume)Ordered By: Chani Willis on 08-30-2023 Albumin [Mass/Vol] 3.9 g/dL 3.2-5.0 [facility] Serum or plasma albumin/glob ulin mass ratioOrdered By: Chani Willis on 08-30-2023 Albumin/Globulin [Mass ratio] 1.1 {ratio} 0.9-2.4 [facility] Serum or plasma calcium antonia urement (mass/volume)Ordered By: Chani Willis on 08-30-2023 Calcium [Mass/Vol] 8.8 mg/dL 8.5-10.1 [facility] Serum or plasma cholesterol in HDL measurement (mass/volume)Ordered By: Chani Willis on 08-30-2023 Cholesterol in HDL [Mass/Vol] 39 mg/dL >40 [facility] Comment on above: The drugs N-Acetylcy steine and Metamizole may falsely depress this assay. Reference Range HDL <40 mg/dL Low HDL Cholesterol HDL >or= 60 mg/dL High HDL Cholesterol Serum or plasma cholesterol in VLDL measurement (mass/volume)Ordered By: Chani Willis on 08-30-2023 Cholesterol in VLDL [Mass/Vol] 44 mg/dL 5-40 [facility] Serum or plasma creatinine m easurement (mass/volume)Ordered By: Chani Willis on 08-30-2023 Creatinine [Mass/Vol] 1.19 mg/dL 0.70-1.30 [facility] Comment on above: The validity of the calculated GFR & GFRAA in patients over 70 years has not been determined. Clinical correlation is essential. Serum or plasma ferritin jennifer surement (mass/volume)Ordered By: Chani Willis on 08-30-2023 Ferritin [Mass/Vol] 292 ng/mL 26-388 [facility] Serum or plasma low density lipoprotein (LDL) cholesterol measurement (mass/volume)Ordered By: Chani Willis on 08-30-2023 Cholesterol in LDL [Mass/Vol] 146 mg/dL 0-130 [facility] Serum or plasma urea nitroge n measurement (mass/volume)Ordered By: Chani Willis on 08-30-2023 Urea nitrogen [Mass/Vol] 17 mg/dL 7-18 [facility] Thin prep Papanicolaou smear with manual screeningOrdered By: Chani Willis on 08-30-2023 Thin prep Papanicolaou smear with manual screening 24 U/L 15-37 [facility] Thin prep Papanicolaou smear with manual screening 5 5-15 [facility] Thyroid Stim Hormone (TSH)on 08-30-2023 TSH 2.29 uIU/mL Normal 0.358-3.74 [facility] Comment on above: Order Comment: Order Date: 08/25/23 Order Info: [id number] - CMP Order Info: [id number] - LIPID Order Info: [id number] - MG Order Info: [id number] - TSH Order Info: [id number] - IDA Performed By: #### L [id number], L503.0105, L501.5200, L500.4050, L501.9985, L500.4100, L506.1000, L100.0100, L503.6550 #### [facility] [address] [place], [place], [address] Vitamin B12on 08-30-2023 Cobalamin (Vitamin B12) [Mass/Vol] 550 pg/mL Normal 211-911 [facility] Comment on above: Order Comment: Order Date: 08/25/23 Order Info: [id number] - B12 Order Info: [id number] - VITD25 Performed By: #### L [id number], L503.0105, L501.5200, L500.4050, L501.9985, L500.4100, L506.1000, L100.0100, L503.6550 #### [facility] [address] [place], [address] Vitamin D,25 Hydroxyon 08-30 Vitamin D 25-OH 30.7 ng/mL Normal [facility] Comment on above: Order Comment: Order Date: 08/25/23 Order Info: [id number] - B12 Order Info: [id number] - VITD25 Result Comment: Margarette min D 25(OH) Status Range Deficiency <20 ng/mL (50nmol/L) Insufficiency 20 - 30 ng/mL (50 - 75 nmol/L) Sufficiency 30 - 100 ng/mL (75 - 250 nmol/L) Toxicity >100 ng/mL (>250 nmol/L) Performed By: #### L [id number], L503.0105, L501.5200, L500.4050, L501.9985, L500.4100, L506.1000, L100.0100, L503.6550 #### [facility] [address] [place], [address] Whole blood hemoglobin A1c/t otal hemoglobin ratio (mass fraction)Ordered By: Chani Willis on 08-30-2023 HbA1c (Bld) [Mass fraction] 5.0 % 3.8-5.6 [facility] Comment on above: Normal < 5.7 % Predi abetic 5.7 - 6.4 % Diabetic >or= 6.5 % Please note range changes. CT SINUS WO IVCONon 08-04-20 [facility] Vital Signs Date Time Vital Sign Value Performing Clinician Faci jaleel 05-24-2025 15:59-0400 Body mass index (BMI) [Ratio] 33.78 kg/m2 Roman Hagen MD Work Phone: [facility] 05-24-2025 15:59-0400 Body temperature 99.1 [degF] Roman Hagen MD Work Phone: [facility] 05-24-2025 15:59-0400 Body weight 106.8 kg Roman aHgen MD Work Phone: [facility] 05-24-2025 15:59-0400 Diastolic blood pressure 86 mm[Hg] Roman Hagen MD Work Phone: [facility] 05-24-2025 15:59-0400 Heart rate 90 /min Roman Hagen MD Work Phone: [facility] 05-24-2025 15:59-0400 Respiratory rate 18 /min Roman Hagen MD Work Phone: [facility] 05-24-2025 15:59-0400 SaO2% (BldA) [Mass fraction] 98 % Roman Hagen MD Work Phone: [facility] 05-24-2025 15:59-0400 Systolic blood pressure 130 mm[Hg] Roman Hagen MD Work Phone: [facility] 09-15-2024 14:59-0500 Body mass index (BMI) [Ratio] 34.16 kg/m2 Gerald Moomaw COMMERCIAL REPRESENTATIVE.E BUSINESS MANAGER Work Phone: [facility] 09-15-2024 14:59-0500 Body temperature 99.19 [degF] Gerald Moomaw COMMERCIAL REPRESENTATIVE.E BUSINESS MANAGER Work Phone: [facility] 09-15-2024 14:59-0500 Body weight 108 kg Gerald Moomaw COMMERCIAL REPRESENTATIVE.E BUSINESS MANAGER Work Phone: [facility] 09-15-2024 14:59-0500 Diastolic blood pressure 84 mm[Hg] Gerald Moomaw COMMERCIAL REPRESENTATIVE.E BUSINESS MANAGER Work Phone: [facility] 09-15-2024 14:59-0500 Heart rate 86 /min Gerald Moomaw COMMERCIAL REPRESENTATIVE.E BUSINESS MANAGER Work Phone: [facility] 09-15-2024 14:59-0500 Respiratory rate 18 /min Gerald Moomaw COMMERCIAL REPRESENTATIVE.E BUSINESS MANAGER Work Phone: [facility] 09-15-2024 14:59-0500 SaO2% (BldA) [Mass fraction] 95 % Gerald Moomaw COMMERCIAL REPRESENTATIVE.E BUSINESS MANAGER Work Phone: [facility] 09-15-2024 14:59-0500 Systolic blood pressure 142 mm[Hg] Gerald Moomaw COMMERCIAL REPRESENTATIVE.E BUSINESS MANAGER Work Phone: [facility] Encounters Encounter Date Encounter Type Care Provider Facility Start: 05-24-2025 End: 05-24-2025 Subsequent hospital visit by physician [facility] Work Phone: Radiology Comment on above: Wrist pain, right [M 25.531] Start: 05-24-2025 End: 05-24-2025 Office outpatient visit 25 minutes Roman Hagen MD Work Phone: [facility] Comment on above: Wrist pain, right (P rimary Dx); Tendonitis of wrist, right Start: 05-24-2025 End: 05-24-2025 ambulatory MARGI BAE Facility:[facility] Start: 09-15-2024 End: 09-15-2024 ambulatory GERALD JULES Facility:[facility] Start: 09-15-2024 End: 09-15-2024 Patient encounter procedure Gerald Jules COMMERCIAL REPRESENTATIVE.E BUSINESS MANAGER Work Phone: [facility] Comment on above: STD exposure (Primar y Dx) Start: 08-30-2023 End: 08-30-2023 ambulatory Chani Willis [facility] Work Phone: Start: 08-30-2023 End: 08-30-2023 Patient encounter procedure [facility]-Laboratory, [facility] Start: 08-04-2022 End: 08-04-2022 Subsequent hospital visit by physician [facility] ([facility]) Work Phone: [facility] Comment on above: Other chronic sinusi tis [J32.8] Start: 06-09-2022 End: 06-09-2022 ambulatory [facility] Work Phone: Start: 06-09-2022 End: 06-09-2022 Patient encounter procedure [facility]-MRI - [facility] Procedures Date Procedure Procedure Detail Performing Clinician Start: 05-24-2025 Radex wrist complete minimum 3 views Roman Hagen MD Work Phone: Start: 08-04-2022 Ct maxillofacial w/o contrast material [facility] Provider Start: 06-09-2022 MRI of temporomandib ular joint Plan of Treatment Date Care Activity Detail Author Start: 06-11-2025 Influenza vaccination Influenza Vacc ine (#1) [facility] Start: 09-15-2024 End: 12-15-2024 Chlamydia trachomatis+Neisseria gonorrhoeae DNA [Presence] in Unspecified specimen by DEXTER with probe detection GONORRHEA/CHLAMYDIA NAAT Lab Routine STD exposure Expected: 09/15/2024, Expires: 12/15/2024 [facility] Comment on above: Expected: 09/15/2024 , Expires: 12/15/2024 Start: 09-15-2024 End: 12-15-2024 Hepatitis B virus surface Ag [Presence] in Serum [facility] Comment on above: Expected: 09/15/2024 , Expires: 12/15/2024 Start: 09-15-2024 End: 12-15-2024 Hepatitis C virus Ab [Presence] in Serum [facility] Comment on above: Expected: 09/15/2024 , Expires: 12/15/2024 Start: 09-15-2024 End: 12-15-2024 HERPES SIMPLEX TYPE 1 AND 2 IG [facility] Comment on above: Expected: 09/15/2024 , Expires: 12/15/2024 Start: 09-15-2024 End: 12-15-2024 HIV 1+2 Ab [Presence] in Serum or Plasma by Immunoassay [facility] Comment on above: Expected: 09/15/2024 , Expires: 12/15/2024 Start: 09-15-2024 End: 12-15-2024 SYPHILIS TREPONEMAL W/REFLEX [facility] Work Phone: Comment on above: Expected: 09/15/2024 , Expires: 12/15/2024 Start: 06-11-2024 Covid-19 Vaccine ( season) Covid-19 Vaccine ( season) [facility] Start: 06-11-2024 Influenza vaccination Influenza Vacc ine (#1) [facility] Start: 06-11-2023 Covid-19 Vaccine ( season) Covid-19 Vaccine ( season) [facility] Start: 06-11-2023 Influenza vaccination Influenza Vacc ine (#1) [facility] Start: 12-24-2022 Lipid 1996 panel - S quinten or Plasma Lipid Screening [facility] Start: 12-24-2022 Lipid panel Lipid Screening [facility] Start: 10-11-2022 Depression Assessment Depression Ass essment [facility] Start: 12-24-2014 HPV Vaccine (1 - 3-d ose SCDM series) HPV Vaccine (1 - 3-dose SCDM series) [facility] Start: 12-24-2006 Hepatitis B Vaccine (1 of 3 - 19+ 3-dose series) Hepatitis B Vaccine (1 of 3 - 19+ 3-dose series) [facility] Start: 12-24-2006 Urine microalbumin profile DTaP,Tdap,Td Vaccine (1 - Tdap) [facility] Start: 12-24-2005 Anxiety Screening Anxiety Screening [facility] Start: 12-24-2005 Depression Screening Depression Scre ening [facility] Start: 12-24-2005 Hepatitis C Screening Hepatitis C [facility] Start: 12-24-2005 Hepatitis C screening Hepatitis C [facility] Start: 12-24-2005 HIV Screening HIV Screening [facility] Start: 12-24-2005 HIV screening HIV Screening [facility] Start: 1987 Hepatitis B Vaccine (1 of 3 - 3-dose series) Hepatitis B Vaccine (1 of 3 - 3-dose series) [facility] Immunizations Immunization Date Immunization Notes Care Provider Fa blanka 07-30-2021 influenza virus vaccine, unspecified formulation Ct (I-Stat) Work Phone: [facility] 08-05-2019 influenza, injectabl e, quadrivalent, contains preservative Ct (I-Stat) Work Phone: [facility] Work Phone: 07-23-2018 influenza, injectabl e, quadrivalent, contains preservative Ct (I-Stat) Work Phone: [facility] 08-14-2017 influenza, injectabl e, quadrivalent, contains preservative Ct (I-Stat) Work Phone: [facility] Work Phone: Payers Date Payer Category Payer Self-pay [id number] 2017 Private Health Insurance [id number] 2017 Private Health Insurance [id number] [address] [facility] PACKAGE PLAN [id number] Unknown [id number] Social History Date Type Detail Facility Start: 01-06-2017 End: 01-06-2017 Tobacco smoking status NHIS Unknown if ever smoked [facility] Start: 1985 Sex Assigned At Male C [facility] Start: 11-09-2019 End: 09-15-2024 Tobacco smoking status NHIS Never smoked tobacco [facility] Work Phone: Start: 11-09-2019 End: 09-15-2024 Tobacco use and exposure Smokeless tobacco non-user [facility] Work Phone: Start: 08-12-2021 End: 05-24-2025 Alcohol intake Current drinker of alcohol (finding) [facility] Start: 08-12-2021 End: 11-08-2022 History of Social function [facility] Start: 08-12-2021 End: 11-08-2022 Tobacco use panel [facility] Start: 08-11-2017 National Score (1-10 0), lower number is lower risk Not on file [facility] Start: 08-12-2021 Alcohol Comment weekly [facility] Start: 05-01-2021 Gender identity Identifies as male gender (finding) [facility] Start: 05-01-2021 Sexual orientation Heterosexual (fin ding) [facility] Clinical Notes 05-23-2021 to 05-24-2025 Jovani Laboy, RT(R) - 05/24/2025 4:20 PM EDRoman Pérez MD - 05/24/2025 4:00 PM Gerald Alberto APRN.E BUSINESS MANAGER - 09/15/2024 3:11 PM Vesta Edward, RT(R) - 08/04/2022 3:20 PM EDT Note Date & Type Note Facility 05-24-2025 History of Present illness Narrative Radiology Service Progress Note PATIENT NAME: Tonia Woodruff DATE OF SERVICE: May 24, 2025 TIME: 4:08 PM PATIENT IDENTITY VERIFICATION COMPLETED USING TWO (2) IDENTIFIERS: Name and Date of confirmed by patient verbally. FALL SCREENING: Has the patient had 2 falls in the last year or 1 fall with injury or currently using an Ambulatory Assistive Device (Walker, Cane, Wheelchair, Crutches, etc.)? No PATIENT GENDER DATA: Assigned male at PATIENT RELEVANT IMPLANT DATA REVIEWED: Yes PATIENT PRESENTS WITH AN IMPLANTABLE OR ATTACHED AIR CARGO GROUND CREW SUPERVISOR: No RADIOLOGY DEPARTMENT: General X-ray: Exam(s) Completed: Upper Extremity X-Ray(s): Wrist, right PERIPHERAL IV DATA: Not applicable SIGNED BY: RT James(R) May 24, 2025 4:08 PM documented in this encounter [facility] 05-24-2025 Note HNO ID: [id number] Author: JOVANI LABOY RT(Ravi) Service: ? Author Type: Conveyor Tender Type: Progress Notes Filed: 05/24/2025 16:15 Note Text: Radiology Service Progress Note PATIENT NAME: Tonia Woodruff DATE OF SERVICE: May 24, 2025 TIME: 4:08 PM PATIENT IDENTITY VERIFICATION COMPLETED USING TWO (2) IDENTIFIERS: Name and Date of confirmed by patient verbally. FALL SCREENING: Has the patient had 2 falls in the last year or 1 fall with injury or currently using an Ambulatory Assistive Device (Walker, Cane, Wheelchair, Crutches, etc.)? No PATIENT GENDER DATA: Assigned male at PATIENT RELEVANT IMPLANT DATA REVIEWED: Yes PATIENT PRESENTS WITH AN IMPLANTABLE OR ATTACHED AIR CARGO GROUND CREW SUPERVISOR: No RADIOLOGY DEPARTMENT: General X-ray: Exam(s) Completed: Upper Extremity X-Ray(s): Wrist, right PERIPHERAL IV DATA: Not applicable SIGNED BY: RT James(R) May 24, 2025 4:08 PM [facility] 05-24-2025 Note HNO ID: [id number] Author: ROMAN HAGEN MD Service: ? Author Type: Physician Type: Progress Notes Filed: 05/24/2025 17:13 Note Text: [facility] Subjective Tonia Woodruff is a 39 year old male. Patient presents with: Wrist Pain: R wrist pain x6 weeks, denies injury, overuse while gardening Right wrist pain: Duration: Started 6 weeks ago after a long weekend of yard work. No specific injury. Location: Dorsal right wrist Character: sharp and throbbing. Swelling, pain, and pain with movement have improved somewhat since they started. Radiation: Shoots up the arm with certain activity. Aggravating: Tender to touch a lump on the back of the hand, very painful trying to lift, hurts to grasp and shake hands Relieving: Pain relievers: Advil Associated: Initial wrist swelling has decrease, painful range of motion has improved (still hurts to flex and extend), palpable lump on the back of the hand at the wrist Pertinent negatives: Denies numbness Review of Systems Objective BP 130/86 Pulse 90 Temp 37.3 ?C (99.1 ?F) Resp 18 Wt 106.8 kg (235 lb 7.2 oz) SpO2 98% BMI 33.78 kg/m? Physical Exam Constitutional: General: He is not in acute distress. Musculoskeletal: Right wrist: Bony tenderness (Tender at the insertion of the extensor carpi radialis tendons. Other hand and wrist bones are nontender to palpation.) present. No swelling, deformity or snuff box tenderness. Decreased range of motion (Discomfort with near full flexion and extension. No pain with radial or ulnar deviation or supination/pronation. Pain with grasping.). Normal pulse. Hands: Neurological: Mental Status: He is alert. {ASSESSMENT/PLAN: 1. Wrist pain, right - ICD9: 719.43, ICD10: M25.531 (primary diagnosis) 2. Tendonitis of wrist, right - ICD9: 727.05, ICD10: M77.8 - XR WRIST GENERAL 3V PA/LAT/OBL RIGHT - negative/normal Treat extensor carpi radialis insertion tendinitis with rest, ice, and anti-inflammatory/analgesic. He will continue Advil. Fitted with cock up splint from vendor stock. Follow-up with orthopedics if not improving. Roman Hagen MD Differential Diagnoses - Tendinitis is more likely for the following reason(s): suggested by HANDP - Fracture is less likely for the following reason(s): no evidence on imaging Additional Tests or Interventions The following medication(s) were considered but not ordered: Discussed continuing NSAID versus oral steroid Procedures [facility] 05-24-2025 History of Present illness Narrative Images from the original note were not included. [facility] Subjective Tonia Woodruff is a 39 year old male. Patient presents with: Wrist Pain: R wrist pain x6 weeks, denies injury, overuse while gardening Right wrist pain: Duration: Started 6 weeks ago after a long weekend of yard work. No specific injury. Location: Dorsal right wrist Character: sharp and throbbing. Swelling, pain, and pain with movement have improved somewhat since they started. Radiation: Shoots up the arm with certain activity. Aggravating: Tender to touch a lump on the back of the hand, very painful trying to lift, hurts to grasp and shake hands Relieving: Pain relievers: Advil Associated: Initial wrist swelling has decrease, painful range of motion has improved (still hurts to flex and extend), palpable lump on the back of the hand at the wrist Pertinent negatives: Denies numbness Review of Systems Objective BP 130/86 Pulse 90 Temp 37.3 C (99.1 F) Resp 18 Wt 106.8 kg (235 lb 7.2 oz) SpO2 98% BMI 33.78 kg/m Physical Exam Constitutional: General: He is not in acute distress. Musculoskeletal: Right wrist: Bony tenderness (Tender at the insertion of the extensor carpi radialis tendons. Other hand and wrist bones are nontender to palpation.) present. No swelling, deformity or snuff box tenderness. Decreased range of motion (Discomfort with near full flexion and extension. No pain with radial or ulnar deviation or supination/pronation. Pain with grasping.). Normal pulse. Hands: Neurological: Mental Status: He is alert. {ASSESSMENT/PLAN: 1. Wrist pain, right - ICD9: 719.43, ICD10: M25.531 (primary diagnosis) 2. Tendonitis of wrist, right - ICD9: 727.05, ICD10: M77.8 - XR WRIST GENERAL 3V PA/LAT/OBL RIGHT - negative/normal Treat extensor carpi radialis insertion tendinitis with rest, ice, and anti-inflammatory/analgesic. He will continue Advil. Fitted with cock up splint from vendor stock. Follow-up with orthopedics if not improving. Roman Hagen MD Differential Diagnoses - Tendinitis is more likely for the following reason(s): suggested by H&P - Fracture is less likely for the following reason(s): no evidence on imaging Additional Tests or Interventions The following medication(s) were considered but not ordered: Discussed continuing NSAID versus oral steroid Procedures documented in this encounter [facility] 09-15-2024 Note HNO ID: [id number] Author: GERALD JULES APRN.LAYO Service: ? Author Type: Nurse Practitioner Type: Progress Notes Filed: 09/15/2024 15:14 Note Text: This note was created using Agily[employer]. Subjective Tonia Woodruff is a 38 year old male. HPI Patient is concerned for possible STD exposure and presents requesting testing. Patient otherwise denies any nausea vomiting fever, lesions, penile drainage, or abdominal pain. Review of Systems As noted above Objective BP 142/84 Pulse 86 Temp 37.3 ?C (99.2 ?F) Resp 18 Wt 108 kg (238 lb 1.6 oz) SpO2 95% BMI 34.16 kg/m? Physical Exam Vitals and nursing note reviewed. Constitutional: General: He is not in acute distress. Appearance: Normal appearance. He is not ill-appearing. HENT: Head: Normocephalic. Pulmonary: Effort: Pulmonary effort is normal. Musculoskeletal: General: Normal range of motion. Cervical back: Normal range of motion. Skin: General: Skin is warm and dry. Neurological: General: No focal deficit present. Mental Status: He is alert. Psychiatric: Mood and Affect: Mood normal. Behavior: Behavior normal. Assessment and Plan ASSESSMENT/PLAN: 1. STD exposure - ICD9: V01.6, ICD10: Z20.2 Testing done as noted below. Patient will be notified of results. - SYPHILIS TREPONEMAL W/REFLEX - HIV 1/2 COMBO WITH REFLEX TO DIFFERENTIATION - HEPATITIS C ANTIBODY IA WITH CONFIRMATION - HEPATITIS B SURFACE ANTIGEN - GONORRHEA/CHLAMYDIA NAAT - HERPES SIMPLEX TYPE 1 AND 2 IG Gerald Jules APRN.E BUSINESS MANAGER [facility] 09-15-2024 History of Present illness Narrative This note was created using NoteWriter. Subjective Tonia Woodruff is a 38 year old male. HPI Patient is concerned for possible STD exposure and presents requesting testing. Patient otherwise denies any nausea vomiting fever, lesions, penile drainage, or abdominal pain. Review of Systems As noted above Objective BP 142/84 Pulse 86 Temp 37.3 C (99.2 F) Resp 18 Wt 108 kg (238 lb 1.6 oz) SpO2 95% BMI 34.16 kg/m Physical Exam Vitals and nursing note reviewed. Constitutional: General: He is not in acute distress. Appearance: Normal appearance. He is not ill-appearing. HENT: Head: Normocephalic. Pulmonary: Effort: Pulmonary effort is normal. Musculoskeletal: General: Normal range of motion. Cervical back: Normal range of motion. Skin: General: Skin is warm and dry. Neurological: General: No focal deficit present. Mental Status: He is alert. Psychiatric: Mood and Affect: Mood normal. Behavior: Behavior normal. Assessment and Plan ASSESSMENT/PLAN: 1. STD exposure - ICD9: V01.6, ICD10: Z20.2 Testing done as noted below. Patient will be notified of results. - SYPHILIS TREPONEMAL W/REFLEX - HIV 1/2 COMBO WITH REFLEX TO DIFFERENTIATION - HEPATITIS C ANTIBODY IA WITH CONFIRMATION - HEPATITIS B SURFACE ANTIGEN - GONORRHEA/CHLAMYDIA NAAT - HERPES SIMPLEX TYPE 1 AND 2 IG Gerald Jules APRN.E BUSINESS MANAGER documented in this encounter [facility] 08-04-2022 History of Present illness Narrative Radiology Service Progress Note PATIENT NAME: Tonia Woodruff DATE OF SERVICE: August 04, 2022 TIME: 3:43 PM PATIENT IDENTITY VERIFICATION COMPLETED USING TWO (2) IDENTIFIERS: Name and Date of confirmed by patient verbally. FALL SCREENING: Has the patient had 2 falls in the last year or 1 fall with injury or currently using an Ambulatory Assistive Device (Walker, Cane, Wheelchair, Crutches, etc.)? No PATIENT GENDER DATA: Male PATIENT RELEVANT IMPLANT DATA REVIEWED: Not Applicable RADIOLOGY DEPARTMENT: CT; Exam(s) Completed: Sinus PERIPHERAL IV DATA: Not applicable SIGNED BY: RT Romelia(R) August 04, 2022 3:43 PM documented in this encounter [facility] 05-23-2021 History of Past i llness Narrative Problem Noted Date Diagnosed Date Resolved Date Muscle tightness 05/23/2021 07/11/2021 documented as of this encounter (statuses as of 08/16/2023) [facility]No [facility]WK[facility] Work Phone: Evaluation note* Diagnosis STD exposure- Primary documented in this encounter [facility] note* Diagnosis Wrist pain, right- Primary Pain in joint, forearm Tendonitis of wrist, right Other tenosynovitis of hand and wrist Wrist pain, right Pain in joint, forearm documented in this encounter [facility] note* Diagnosis Wrist pain, right Pain in joint, forearm [facility]* Diagnostic Procedure Only (Urgent) - Closed Specialty Diagnoses / Procedures Referred By Curtis barlow Referred To Contact XR IMAGING Diagnoses Wrist pain, right Procedures XR WRIST GENERAL 3V PA/LAT/OBL RIGHT RADEX WRIST COMPLETE MINIMUM 3 VIEWS Roman Hagen MD [address] [place] [address] Phone: tel: fax: [place] [address] Referral ID Status Reason Start Date Expiration Date V isits Requested Visits Authorized [id number] Closed Auto-Generate d Referral 05/24/2025 06/23/2026 1 1 [facility] Chief Complaint and Reason for Visit Chief Complaint Bilateral temporoman dibular joint disorder, unspec Advance Directives No Advanced Directives Records Found Advance Directive Response Recorded Date/ Time Living Will No January 06, 2017 8:34pm Power of It Quality Assurance Analyst No January 06 8:34pm Advance Directive Response Recorded Date/ Time Living Will No January 06, 2017 7:34pm Power of It Quality Assurance Analyst No January 06 7:34pm Summary Purpose Family History No Family History Records FoundNo Family History Records Found Additional Source Comments Goals (unrecognized section and content) Goals may be documented in a n alternate sectionGoals may be documented in an alternate section Source Comments (unrecognize d section and content) In the event this informatio n is protected by the Federal Confidentiality of Alcohol and Drug Abuse Patient Records regulations: The Federal rules restrict any use of the information to criminally investigate or prosecute any alcohol or drug abuse patient.[facility] the event this information is protected by the Federal Confidentiality of Alcohol and Drug Abuse Patient Records regulations: The Federal rules restrict any use of the information to criminally investigate or prosecute any alcohol or drug abuse patient.[facility] the event this information is protected by the Federal Confidentiality of Alcohol and Drug Abuse Patient Records regulations: The Federal rules restrict any use of the information to criminally investigate or prosecute any alcohol or drug abuse patient.[facility] Hospital[facility] the event this information is protected by the Federal Confidentiality of Alcohol and Drug Abuse Patient Records regulations: The Federal rules restrict any use of the information to criminally investigate or prosecute any alcohol or drug abuse patient.[facility] Reason for Visit (unrecogniz ed section and content) Reason Comments Radiology CT Specialty Diagnoses / Procedures Referred By Curtis barlow Referred To Contact Radiology / RADIO CT SCAN [facility] Diagnoses Other chronic sinusitis CT SINUSES COMPLETE WO IVCONTRAST-CHRONIC SINUSITIS J32.8 OUTSIDE ORDER SCANNED AND PLACED IN SYNGO Procedures CT MAXILLOFACIAL W/O CONTRAST MATERIAL CT WO COMPLEX SINUS [address] [place] [address] [facility] [address] [place] [address] Referral ID Status Reason Start Date Expiration Date Visits Re quested Visits Authorized [id number] Closed 07/27/2022 01/23/2023 1 1 Reason Comments Herpes Requesting bloodwork , denies symptoms or active infection Reason Comments Wrist Pain R wrist pain x6 week s, denies injury, overuse while gardening Care Teams (unrecognized sec tion and content) Team Status: Active Member Role Status Dates No Primary Care Physician Family Provider Active Chani Willis DO Primary Care Provider Active Team Status: Inactive Member Role Status Dates Chani Willis , Primary Care Provider, Attending Provider Active Residential Subcontractor Relationship Specialty Start Date End Date Margi Bae MD [address] [facility] [address] [place] [address] PCP - General Internal Medicine 05/24/25 Residential Subcontractor Relationship Specialty Start Date End Date Margi Bae MD [address] [facility] [address] [place], [place] [id number] PCP - General Internal Medicine 05/24/25 (unrecognized sect ion and content) No Status Records FoundNo Status Records Found INFORMATION SOURCE (unrecogn ized section and content) DATE CREATED AUTHOR 09/18/2023 [facility] DATE CREATED AUTHOR AUTHOR'S LEEANN DONNELLYION 05/26/2025 [facility] FOR RECORDS PERTAINING TO PATIENTS WHO ARE OR HAVE BEEN ENROLLED IN A CHEMICAL DEPENDENCY/SUBSTANCEABUSE PROGRAM, SOME INFORMATION MAY BE OMITTED. This clinical summary was aggregated from multiple sources. Caution should be exercised in using it in the provision of clinical care. This summary normalizes information from multiple sources, and as a consequence, information in this document may materially change the coding, format and clinical context of patient data. In addition, data may be omitted in some cases. CLINICAL DECISIONS SHOULD BE BASED ON THE PRIMARY CLINICAL RECORDS. [employer] [facility] provides no warranty or guarantee of the accuracy or completeness of information in this document.
[2025-07-06 16:20] LABS: Hematocrit 47.4 % (40-54); Hemoglobin 16.0 g/dL (13.0-16.5); Mean Corp Hgb Conc 33.8 g/dL (32-36); Mean Corpuscular Volume 85.9 fL (80-94); Mean Platelet Vol. 11.1 fl (6.2-12.0); Platelet Count 264 K/mm3 (150-450); RBC Distribution Width CV 12.9 % (11.6-14.6); RBC Distribution Width SD 40.0 fl (35.1-43.9); Red Blood Count 5.52 M/mm3 (4.6-6.2); White Blood Count 6.9 K/mm3 (4.4-11.0)
[2025-07-06 16:39] LABS: AST(SGOT) 31 U/L (<=37); Alanine Aminotransfer ALT/SGPT 32 U/L (<=46); Albumin, Serum 3.1 g/dL (3.5-5.0); Alkaline Phosphatase 84 U/L (40-129); Anion Gap 13 (5-15); BUN 16 mg/dL (4-19); BUN/Creat Ratio 15.9 RATIO (10-20); Calcium,Total 8.8 mg/dL (7.6-11.0); Carbon Dioxide 23.4 mmol/L (21.0-32.0); Chloride 102 mmol/L (98-108); Cholesterol 74 mg/dL (<=200); Globulin 2.5 g/dL (2.2-4.2); Glucose 51 mg/dL (70-99); Low Density Lipoprotein Calc. 25 mg/dL; Potassium 4.0 mmol/L (3.3-5.1); Triglycerides 95 mg/dL; Very Low Density Lipoprotein 19 mg/dL (5-40); Vitamin D,25 Hydroxy 22.4 ng/mL (30-100); cholesterol:hdl ratio screen 2.41
== END | disposition home or self-care (01) ==
LOC: MFPLAB 11:45
PROVIDERS: PCP Family Medicine; Referring Provider Family Medicine; Visit Provider Family Medicine
DX: Z13.220 Encounter for screening for lipoid disorders (principal); R53.83 Other fatigue; Z13.1 Encounter for screening for diabetes mellitus
CPT/HCPCS: 36415; 80053; 80061; 82306; 83036; 84443; 85027